=== PATIENT | male | born 1955 | race Caucasian/White ===

== ENCOUNTER → 2017-07-11 | Outpatient (CLI) | payer OTHER ==
--- NOTE | 2017-07-11 12:05 | RADIOLOGY REPORT PS360 ---
EXAM: CERVICAL SPINE 4 OR 5 VIEWS HISTORY: LEFT SHOULDER PAIN,CHRONIC PAIN ORDERING PHYSICIAN: Colette Decker APRN PATIENT AGE: 62 years COMPARISON: None FINDINGS: Normal alignment. There is degenerative disc disease at C5-C6 and C6-C7. Mild facet and uncovertebral hypertrophic changes with foraminal narrowing is present at C3-C4 on the right and C5-C6 and C6-C7 on the left. No fracture or dislocation. No lytic or blastic change. No evidence of cervical rib. Vascular calcification noted in the carotids IMPRESSION: Cervical spondylosis with degenerative disc disease at C5-C6 and C6-C7 and facet and uncovertebral arthrosis with right foraminal narrowing at C3-C4 and left foraminal narrowing at C5-6 and C6-7
--- NOTE | 2017-07-11 12:06 | RADIOLOGY REPORT PS360 ---
[id number] VIEWS HISTORY: LEFT SHOULDER PAIN,CHRONIC PAIN ORDERING PHYSICIAN: Colette Decker APRN PATIENT AGE: 62 years COMPARISON: None FINDINGS: No fracture or dislocation. No lytic or blastic change. There is normal mineralization. The joint spaces are well-preserved. No significant degenerative/arthritic changes. No erosive changes evident. Minimal osteophyte formation noted along the AC joint IMPRESSION: Minimal degenerative change at the AC joint otherwise negative
== END ==
LOC: RAD 08:35
DX: M25.512 Pain in left shoulder (principal); G89.29 Other chronic pain